=== PATIENT | male | born 1995 | race Caucasian/White ===

== ENCOUNTER 2017-06-03 08:48 | Observation (INO) | payer OTHER ==
[~2017-06-03] VITALS: Ht 175.3 cm; Wt 78.0 kg
[2017-06-03 09:09] VITALS: BP 121/68; PULSE 63; RESP 18; TEMP 98.2
[2017-06-03 09:17] VITALS: BP 121/68; PULSE 52; RESP 18; TEMP 98.2
[2017-06-03] MEDS ORDERED: SODIUM CHLOR 0.9% 1000 ML INJ 1,000 ML IV SCH (09:28)
[2017-06-03] MEDS ORDERED: SODIUM CHLORIDE 0.9% FLUSH 10 ML FLUSH IV FLUSH PRN ×2 (09:30→13:15)
--- NOTE | 2017-06-03 09:41 | PD ---
HPI Chief Complaint: GI Complaint Time Seen by Provider: 09:18 Travel History International Travel<30 days: No Contact w/Intl Traveler<30days: No Traveled to known affect area: No History of Present Illness HPI 21-year-old male complains of abdominal pain with nausea vomiting. Patient states that the symptoms started 11:00 last night. Patient states the pain in cramping pain diffuse over the abdomen. Patient denies any pain radiation. Patient states that he has intermittent nausea vomiting since then. Patient denies any fever chills. Patient complaint generalized malaise and weakness. Patient denies any headache. Patient denies any chest pain or shortness of breath. Patient denies any dysuria or frequency. Patient denies any medical history. Patient's not on any routine medication. Patient denies any alcohol or drug abuse. Patient was seen in [facility] emergency room last night. CT scan abdomen and pelvis shows acute appendicitis. Possible gallbladder disease. ED physician contacted Dr. Abdi, general surgery. Patient was advised to be transferred to [place] ED for evaluation and see general surgeon. Patient was given Toradol, Zosyn IV prior to arrival. [facility] Past Medical History Medical History: Denies Significant Hx Social History Alcohol Use: Yes Tobacco Use: Yes (/2 ppd) Substance Use: Yes Allergies-Medications (Allergen,Severity, Reaction): Coded Allergies: No Known Allergies (Unverified , 06/03/17) Reported Meds & Prescriptions Reported Meds & Active Scripts Active No Active Prescriptions or Reported Medications Review of Systems General / Constitutional: No: Fever Eyes: No: Visual changes HENT: No: Headaches Cardiovascular: No: Chest Pain or Discomfort Respiratory: No: Shortness of Breath Gastrointestinal: Positive: Nausea, Vomiting, Abdominal Pain Genitourinary: No: Dysuria Musculoskeletal: No: Pain Skin: No Rash Neurologic: No: Weakness Psychiatric: No: Depression Endocrine: No: Polydipsia Hematologic/Lymphatic: No: Easy Bruising Physical Exam Narrative GENERAL: Well-nourished, well-developed patient. SKIN: Focused skin assessment warm/dry. HEAD: Normocephalic. EYES: No scleral icterus. No injection or drainage. NECK: Supple, trachea midline. No JVD or lymphadenopathy. CARDIOVASCULAR: Regular rate and rhythm without murmurs, gallops, or rubs. RESPIRATORY: Breath sounds equal bilaterally. No accessory muscle use. GASTROINTESTINAL: Abdomen soft, nondistended. Patient has mild diffuse tenderness over the abdomen with moderate tenderness on palpation right low quadrant of the abdomen. No rebound tenderness. No mass. MUSCULOSKELETAL: No cyanosis, or edema. BACK: Nontender without obvious deformity. No CVA tenderness. Neurologic exam normal. Data Data Last Documented VS Vital Signs Date Time Temp Pulse Resp B/P (MAP) Pulse Ox O2 Delivery O2 Flow Rate FiO2 06/03/17: 98.2 52 18 121/68 (85) Orders Orders Complete Blood Count With Diff (06/03/17:28) Comprehensive Metabolic Panel (06/03/17:) Prothrombin Time / Inr (Pt) (06/03/17:) Act Partial Throm Time (Ptt) (06/03/17:) Urinalysis - C+S If Indicated (06/03/17:) Iv Access Insert/Monitor (06/03/17:28) Ecg Monitoring (06/03/17:) Oximetry (06/03/17:) Sodium Chlor 0.9% 1000 Ml Inj (Ns 1000 M (06/03/17:28) Sodium Chloride 0.9% Flush (Ns Flush) (06/03/17 09:30) MDM Medical Decision Making Medical Screen Exam Complete: Yes Emergency Medical Condition: Yes Differential Diagnosis Differential diagnosis including acute appendicitis, acute cholecystitis, enteritis, colitis. Narrative Course 21-year-old male with abdominal pain especially right low quadrant abdominal pain since last night. Patient was seen in [place] ED and transferred to [place] ED. Patient was given Toradol and Zosyn last night. Normal saline solution 1 25 cc an hour. Scripts No Active Prescriptions or Reported Meds Timmy Bocanegra MD Jun 03, 2017 09:41
[2017-06-03 10:05] LABS: AUTOMATED NEUTROPHIL # 12.5 TH/MM3 (1.8-7.7); BASOPHIL % 0.1 % (0.0-2.0); HEMATOCRIT 39.9 % (39.0-51.0); HEMO FLAGS DIFF FINAL; LYMPH % 4.4 % (9.0-44.0); LYMPHOCYTE # 0.6 TH/MM3 (1.0-4.8); MEAN CELL VOLUME 87.7 FL (80.0-100.0); MEAN CORPUSCULAR HEMOGLOBIN 29.8 PG (27.0-34.0); NEUT % 91.5 % (16.0-70.0); PLATELET COUNT 225 TH/MM3 (150-450); RED BLOOD COUNT 4.55 MIL/MM3 (4.50-5.90); RED CELL DISTRIBUTION WIDTH 14.1 % (11.6-17.2); WHITE BLOOD COUNT 13.7 TH/MM3 (4.0-11.0)
[2017-06-03 10:13] LABS: PROTHROMBIN TIME - PATIENT 11.3 SEC (9.8-11.6)
[2017-06-03 10:25] LABS: ANION GAP 7 MEQ/L (5-15); AST (GOT) 12 U/L (15-37); BICARBONATE 23.4 MEQ/L (21.0-32.0); BLOOD UREA NITROGEN 8 MG/DL (7-18); CHLORIDE 106 MEQ/L (98-107); GLOMERULAR FILTRATION RATE 147 ML/MIN (>89); POTASSIUM 4.1 MEQ/L (3.5-5.1); SODIUM (NA) 136 MEQ/L (136-145)
[2017-06-03 10:26] LABS: ALT (GPT) 24 U/L (12-78)
[2017-06-03 10:29] LABS: ALKALINE PHOSPHATASE 106 U/L (45-117); TOTAL BILIRUBIN ADULT 1.8 MG/DL (0.2-1.0)
[2017-06-03 11:04] VITALS: BP 132/66; PULSE 64; RESP 16; O2SAT 98
[2017-06-03] MEDS ORDERED: BUPIVACAINE/EPINEPHRINE 0.25% 50 ML VIAL ONE (11:56)
[2017-06-03] MEDS ORDERED: HYDROmorphone HCL PF 2 MG/ML VIAL ONE (11:59)
[2017-06-03] MEDS ORDERED: ACETAMINOPHEN 1000 MG/100 ML 100 ML IV ONE (11:59)
[2017-06-03] MEDS ORDERED: MIDAZOLAM HCL 2 MG/2 ML VIAL ONE (11:59)
[2017-06-03] MEDS ORDERED: SUGAMMADEX SODIUM 200 MG/2 ML VIAL IV PUSH ONE ×2 (11:59)
[2017-06-03] MEDS ORDERED: ceFAZolin INJ 1,000 MG VIAL ONE ×2 (12:00→12:01)
[2017-06-03] MEDS ORDERED: ONDANSETRON HCL 4 MG/2 ML VIAL IV PUSH ONE (12:00)
[2017-06-03] MEDS ORDERED: PROPOFOL 200 MG/20 ML AMP IV ONE (12:00)
--- NOTE | 2017-06-03 13:02 | MH ---
cc: GERRY ANDRADE M.D. DATE OF ADMISSION 06/03/2017 REASON FOR ADMISSION Acute appendicitis BRIEF HISTORY This is an otherwise healthy 21-year-old male who presented to the [place] ER with complaints of abdominal pain for several hours. He had some associated nausea and was evaluated and found to have an elevated white count with a left shift. A CT scan showed some distension of the gallbladder with some pericholecystic fluid, but additionally an enlarged appendix with periappendiceal inflammatory changes and a probable fecalith. He had an elevated total bilirubin, but normal liver function tests otherwise. His history and exam were consistent with acute appendicitis. ALLERGIES He has no known drug allergies. PAST MEDICAL HISTORY Noncontributory PAST SURGERIES None SOCIAL HISTORY He is a smoker, smokes a pack a day and has occasional alcohol use. His parents denied he has any HIV or hepatitis risk factors other than multiple tattoos. FAMILY HISTORY His family history is noncontributory. REVIEW OF SYSTEMS No heart, lung, liver, kidney disorders. No history of seizures. No history of being on blood thinning medications. PHYSICAL EXAM Physical exam shows a young male who is fairly sleepy. He wakes up. He is cooperative. He says his pain is improved since Toradol he received. His temperature is 98.2, pulse 52 rest rate 18, blood pressure 121/68. HEENT: Normocephalic, atraumatic. His pupils are 4 round and sluggishly reactive to light. His sclerae are anicteric. His oropharynx is clear. He has intact dentition. NECK: His neck is supple without neuropathy. He has a midline trachea. No jugular venous distension. LUNGS: His lungs are clear and equal anteriorly bilaterally. HEART: His heart sounds are regular without obvious murmur, rub or gallop. ABDOMEN: His abdomen is thin, soft, nondistended. He has normal bowel sounds. No obvious hernias or scars. He is tender to deep palpation in the right lower quadrant without rebound or guarding. GENITAL AND RECTAL: Exams are not repeated. EXTREMITIES: His extremities show no cyanosis, clubbing or edema. He has multiple tattoos on the torso and extremities. He has got equal radial pulses. NEUROLOGIC: He is somnolent, but wakes and is appropriate. He has no obvious motor or sensory deficits. LABORATORY VALUES Showed a white count that went from 20,000-13,000. He still as 91.5% neutrophils. Hemoglobin is 13.6, platelet count is 225. Coagulation studies are normal. Potassium is 41, creatinine 0.68. He has a total bilirubin of 1.8, but AST is 12, ALT is 24, alkaline phosphatase 106. IMAGING STUDIES Shows a CT scan which shows a small amount of fluid around the gallbladder in the pericolic area on down into the pelvis. He has a distended inflamed appendix with a fecalith. His gallbladder is mildly distended consistent with a BNNPO. ASSESSMENT This is a 21-year-old with likely acute appendicitis. RECOMMENDATIONS Recommendations are made for laparoscopic appendectomy. The time the gallbladder can be evaluated. The procedure in detail plus risks of bleeding, infection, injury to intra-abdominal contents including bowel, ureter bladder possible open surgery, DVT, pulmonary embolus and expectations for recovery were reviewed in detail. The patient understands and wished to proceed. I talked to the operating room and they are intending to bring the patient up to surgery in the very near future. MD DAPHNE Montejo/LETTY /10:51 AM /12:51 PM
[2017-06-03 13:05] VITALS: PULSE 80
[2017-06-03] MEDS ORDERED: DO NOT ADM ANY ANTICOAGULANT DRUGS PRN (13:05)
--- NOTE | 2017-06-03 13:08 | PD.OP ---
Operative Report Date of Surgery: Jun 03, 2017 Preoperative Diagnosis: acute appendicitis Postoperative Diagnosis: same Procedure: lap appie Anesthesia: general Surgeon: Nito Abdi Fire Assistant(s): Rolf Operation and Findings: appendix to path, non perforated appendicitis. Free clear fluid. GB greenish in color, no inflammatory changes. EBL less than 5 ml. Nito Abdi MD Jun 03, 2017 13:08
[2017-06-03] MEDS ORDERED: HYDR-3533 PO (13:12)
[2017-06-03] MEDS ORDERED: Post-op Orders (for Pharmacy) MISC XX ONE (13:15)
[2017-06-03] MEDS ORDERED: MAGNESIUM HYDROXIDE SUSP 30 ML CUP PO PRN (13:15)
[2017-06-03] MEDS ORDERED: MORPHINE SULFATE 8 MG/ML INJ IV PUSH PRN (13:15)
[2017-06-03] MEDS ORDERED: ACETAMINOPHEN/HYDROcodone 325 MG/5 MG TAB PO PRN ×2 (13:15)
[2017-06-03] MEDS ORDERED: ONDANSETRON HCL 4 MG/2 ML VIAL IV PRN (13:15)
--- NOTE | 2017-06-03 13:16 | HHI.DS ---
Discharge Summary Admission Date Jun 03, 2017 at 11:18 Discharge Date: Jun 03, 2017 Admitting Diagnosis acute appendicitis Procedures lap appie Brief History 21 year old with abdominal pain nausea vomiting, workup c/w appendicitis CBC/BMP: 06/03/17 0910 06/03/17 0910 Significant Findings Laboratory Tests Test 06/03/17 09:10 White Blood Count 13.7 TH/MM3 (4.0-11.0) Neutrophils (%) (Auto) 91.5 % (16.0-70.0) Lymphocytes (%) (Auto) 4.4 % (9.0-44.0) Neutrophils # (Auto) 12.5 TH/MM3 (1.8-7.7) Lymphocytes # (Auto) 0.6 TH/MM3 (1.0-4.8) Random Glucose 123 MG/DL (74-106) Aspartate Amino Transf (AST/SGOT) 12 U/L (15-37) Total Bilirubin 1.8 MG/DL (0.2-1.0) PE at Discharge steri strips intact Hospital Course transfer from [place] to ED, then to OR, then PACU and recovered. OK for DC when tolerating po/ po pain meds well. Pt Condition on Discharge: Good Discharge Disposition: Discharge Home Discharge Instructions DIET: Follow Instructions for: As Tolerated, No Restrictions Activities you can perform: Shower Only-No Bath Activities to Avoid: Driving for 24 hrs, Strenuous Activity Nito Abdi MD Jun 03, 2017 13:16
[2017-06-03] MEDS ORDERED: LACTATED RINGER'S 1000 ML INJ 1,000 ML IV SCH (14:00)
[2017-06-03 14:43] VITALS: BP 135/86; PULSE 60; RESP 20; TEMP 97.9; O2SAT 100
[2017-06-03] MEDS ORDERED: KETOROLAC TROMETHAMINE 30 MG/ML (IVP) VIAL IV PUSH SCH (15:00)
[2017-06-03] MEDS ORDERED: SODIUM CHLORIDE 0.9% FLUSH 10 ML FLUSH IV FLUSH SCH (21:00)
[2017-06-04] MEDS ORDERED: ENOXAPARIN SODIUM 40 MG/0.4 ML SYRINGE SQ SCH (12:00)
--- NOTE | 2017-06-06 08:46 | MP ---
cc: GERRY ANDRADE M.D. DATE OF SURGERY: 06/03/2017 PREOPERATIVE DIAGNOSIS Acute appendicitis. POSTOPERATIVE DIAGNOSIS Acute appendicitis. PROCEDURE Laparoscopic appendectomy. SURGEON Dr. Gerry Andrade. ANESTHESIA General. INDICATIONS This is a 21-year-old transferred from [place] with the diagnosis of acute appendicitis. There is some question of a distended gallbladder and free fluid. INTRAOPERATIVE FINDINGS Consistent with acute appendicitis. Appendix removed and sent to pathology. Free fluid clear. No evidence of inflammatory change of the gallbladder which was slightly greenish in color. Appendix removed and sent to pathology. ESTIMATED BLOOD LOSS Less than 5 mL. DESCRIPTION OF PROCEDURE IN DETAIL The patient was identified as Franck Eli, taken to the operating room and placed in supine position. Sequential compression devices were placed on bilateral lower extremities. Following induction of adequate general endotracheal anesthesia the patient's abdomen was prepped and draped in the usual sterile fashion with Betadine. A timeout procedure was performed. Following completion of the timeout procedure to everyone's satisfaction within the room, local anesthetic was placed at each trocar site. A small supraumbilical transverse incision was carried out with a scalpel and dissection continued posteriorly to the level of the midline fascia. The base of the umbilicus was retracted anteriorly and the supraumbilical fascia was incised in a vertical fashion allowing for entry into the peritoneal cavity with the surgeon's finger. The [employer] balloon Mica trocar was placed in the peritoneal cavity and its balloon inflated with CO2 insufflation until a level of 15 mmHg ensued. Two infraumbilical 5 mm trocars were placed in the peritoneal cavity under direct laparoscopic view after incision of the skin with a scalpel. Care was taken to avoid the urinary bladder. The appendix was immediately identified in the right lower quadrant, was distended and inflamed. There was some free fluid which was clear with a slight greenish hint. The appendiceal mesentery was taken down with a Harmonic scalpel down to the base of the appendix to the level of the cecum. A 0 PDS Endoloop was placed across the base of the appendix at the level of the cecum and the appendix amputated distal to this. The appendix was then placed into an Endo retriever bag and removed through the supraumbilical fascial port incision site and passed off the field for pathologic evaluation. Irrigation of the right lower quadrant and pelvis was performed. Fluid in the right paracolic gutter in the pelvis and adjacent to the liver was suctioned out. The sigmoid colon had adherence to the lateral pelvic sidewall in the left lower quadrant. There were no acute inflammatory changes. The gallbladder was slightly greenish in color, mildly distended, but had no inflammatory changes. The remaining local anesthetic was placed in the right lower quadrant. The trocars were removed under direct visualization. There was no evidence of bleeding from the trocar sites. The abdomen was desufflated through the supraumbilical port which was then removed. The supraumbilical fascial incision was closed with interrupted 0 Vicryl sutures. The port sites were irrigated copiously with saline. The skin incisions were approximated with 4-0 Monocryl subcuticular sutures. Dressings were applied with Mastisol and half-inch brown Steri-Strips. The patient tolerated the procedure without apparent complication. Sponge, needle and instrument counts were correct at the end of the case. MD DAPHNE Montejo/JEANNIE /1:04 PM /8:29 AM
== END 2017-06-03 18:19 | disposition home or self-care (01) ==
LOC: NEPD 08:48 → INTOOBSV 11:18 → NEDA 11:18 → H6YA 14:36
PROVIDERS: ADMIT Surgery Trauma Surgery; ATTEND Surgery Trauma Surgery
DX: K35.80 Unspecified acute appendicitis (principal); R53.1 Weakness; R11.2 Nausea with vomiting, unspecified; F17.210 Nicotine dependence, cigarettes, uncomplicated
CPT/HCPCS: 00840; 44970; 70450; 74177; 80053; 81001; 83690; 85025; 85610; 85730; 88304; 93005; 99285; G0378; J0131; J1170; J1885; J2250; J2405; J2543; J3010; J7030; Q9967; 96365; 96375; J0690

== ENCOUNTER 2017-08-27 12:13 | Observation (INO) | payer OTHER ==
[~2017-08-27] VITALS: Ht 175.3 cm; Wt 69.0 kg
[~2017-08-27 12:13] MED LIST: HYDR-3533 PO
[2017-08-27 12:15] VITALS: BP 155/89; PULSE 78; RESP 18; TEMP 97.8; O2SAT 99
[2017-08-27] MEDS ORDERED: SODIUM CHLOR 0.9% 1000 ML INJ 1,000 ML IV SCH (12:40)
[2017-08-27] MEDS ORDERED: ONDANSETRON HCL 4 MG/2 ML VIAL IVP ONE (12:45)
[2017-08-27] MEDS ORDERED: SODIUM CHLORIDE 0.9% FLUSH 10 ML FLUSH IV FLUSH PRN ×2 (12:45→19:00)
[2017-08-27] MEDS ORDERED: MORPHINE SULFATE 4 MG/ML INJ IV PUSH ONE (12:45)
--- NOTE | 2017-08-27 12:54 | PD ---
HPI Chief Complaint: Abdominal Pain Time Seen by Provider: 12:36 Travel History International Travel<30 days: No Contact w/Intl Traveler<30days: No Traveled to known affect area: No History of Present Illness HPI 21-year-old occasional male with history of daily appendicitis with laparoscopic removal on June 03, by Dr. Abdi. He presents with recurrent abdominal pain, which seems to be localizing into the right abdomen again. He denies fever, chills, nausea, vomiting, or urinary symptoms. No Penile discharge. Patient has history of one week ago, falling off a skateboard , and helping someone move. Patient states the pain has gotten progressively worse over the past week. At Rest the pain is currently 4 out of 10. He has no known drug allergies. PFSH Past Medical History Cancer: No Cardiovascular Problems: No Endocrine: No Genitourinary: No Immune Disorder: No Musculoskeletal: No Neurologic: No Psychiatric: No Reproductive: No Respiratory: No Social History Alcohol Use: Yes Tobacco Use: Yes (/2 ppd) Substance Use: No Allergies-Medications (Allergen,Severity, Reaction): Coded Allergies: No Known Allergies (Unverified , 06/03/17) Reported Meds & Prescriptions Reported Meds & Active Scripts Active Lortab (Hydrocodone-Acetaminophen) 5-325 Mg Tab 1 Tab PO Q4H PRN Review of Systems Except as stated in HPI: all other systems reviewed are Neg General / Constitutional: No: Fever Eyes: No: Visual changes HENT: No: Headaches Cardiovascular: No: Chest Pain or Discomfort Respiratory: No: Shortness of Breath Gastrointestinal: Positive: Abdominal Pain, No: Nausea, Vomiting, Diarrhea, Dysphagia, Loss of Appetite Genitourinary: No: Dysuria Musculoskeletal: No: Pain Skin: No Rash Neurologic: No: Weakness Psychiatric: No: Depression Endocrine: No: Polydipsia Hematologic/Lymphatic: No: Easy Bruising Physical Exam Narrative GENERAL: Patient appears in no acute distress. SKIN: Warm and dry. Normal color. Normal turgor. HEAD: Atraumatic. Normocephalic. EYES: Pupils equal and round. No scleral icterus. No injection or drainage. ENT: No nasal bleeding or discharge. Mucous membranes pink and moist. NECK: Trachea midline. Supple. CARDIOVASCULAR: Regular rate and rhythm. RESPIRATORY: No accessory muscle use. Clear to auscultation. Breath sounds equal bilaterally. GASTROINTESTINAL: Abdomen soft, patient has fairly significant point tenderness with out in the right lower quadrant, nondistended. Bowel sounds are present in all quadrants. Hepatic and splenic margins not palpable. MUSCULOSKELETAL: Extremities without clubbing, cyanosis, or edema. No obvious deformities. NEUROLOGICAL: Awake and alert. No obvious cranial nerve deficits. Motor grossly within normal limits. Five out of 5 muscle strength in the arms and legs. Normal speech. PSYCHIATRIC: Appropriate mood and affect; insight and judgment normal. Data Data Last Documented VS Vital Signs Date Time Temp Pulse Resp B/P (MAP) Pulse Ox O2 Delivery O2 Flow Rate FiO2 08/27/17 12:15 97.8 78 18 155/89 (111) 99 Orders Orders Complete Blood Count With Diff (08/27/17 12:40) Comprehensive Metabolic Panel (08/27/17 12:40) Lipase (08/27/17 12:40) Prothrombin Time / Inr (Pt) (08/27/17 12:40) Act Partial Throm Time (Ptt) (08/27/17 12:40) Urinalysis - C+S If Indicated (08/27/17 12:40) Ct Abd/Pel W Iv Contrast(Rout) (08/27/17 12:40) Iv Access Insert/Monitor (08/27/17 12:40) Ecg Monitoring (08/27/17 12:40) Oximetry (08/27/17 12:40) NPO (08/27/17 12:40) Morphine Inj (Morphine Inj) (08/27/17 12:45) Ondansetron Inj (Zofran Inj) (08/27/17 12:45) Sodium Chlor 0.9% 1000 Ml Inj (Ns 1000 M (08/27/17 12:40) Sodium Chloride 0.9% Flush (Ns Flush) (08/27/17 12:45) Oral Contrast - Adult (08/27/17 14:22) Diatrizoate Liq ( Gastrocirilo Liq) (08/27/17 15:30) Iohexol 350 Inj (Omnipaque 350 Inj) (08/27/17 16:52) Piperacil-Tazo 4.5 Gm Premix (Zosyn 4.5 (08/27/17 17:45) Consult General Surgery (08/27/17 ) Labs Laboratory Tests Test 08/27/17 13:00 08/27/17 15:05 White Blood Count 11.2 TH/MM3 Red Blood Count 4.83 MIL/MM3 Hemoglobin 15.5 GM/DL Hematocrit 43.3 % Mean Corpuscular Volume 89.6 FL Mean Corpuscular Hemoglobin 32.0 PG Mean Corpuscular Hemoglobin Concent 35.7 % Red Cell Distribution Width 14.3 % Platelet Count 249 TH/MM3 Mean Platelet Volume 8.1 FL Neutrophils (%) (Auto) 80.2 % Lymphocytes (%) (Auto) 8.8 % Monocytes (%) (Auto) 10.3 % Eosinophils (%) (Auto) 0.6 % Basophils (%) (Auto) 0.1 % Neutrophils # (Auto) 9.0 TH/MM3 Lymphocytes # (Auto) 1.0 TH/MM3 Monocytes # (Auto) 1.2 TH/MM3 Eosinophils # (Auto) 0.1 TH/MM3 Basophils # (Auto) 0.0 TH/MM3 CBC Comment DIFF FINAL Differential Comment Prothrombin Time 11.2 SEC Prothromb Time International Ratio 1.1 RATIO Activated Partial Thromboplast Time 26.1 SEC Blood Urea Nitrogen 9 MG/DL Creatinine 0.70 MG/DL Random Glucose 94 MG/DL Total Protein 7.8 GM/DL Albumin 4.0 GM/DL Calcium Level 9.1 MG/DL Alkaline Phosphatase 91 U/L Aspartate Amino Transf (AST/SGOT) 12 U/L Alanine Aminotransferase (ALT/SGPT) 22 U/L Total Bilirubin 1.6 MG/DL Sodium Level 140 MEQ/L Potassium Level 4.2 MEQ/L Chloride Level 106 MEQ/L Carbon Dioxide Level 26.2 MEQ/L Anion Gap 8 MEQ/L Estimat Glomerular Filtration Rate 142 ML/MIN Lipase 65 U/L Urine Color YELLOW Urine Turbidity CLEAR Urine pH 7.0 Urine Specific [place] 1.009 Urine Protein NEG mg/dL Urine Glucose (UA) NEG mg/dL Urine Ketones 10 mg/dL Urine Occult Blood NEG Urine Nitrite NEG Urine Bilirubin NEG Urine Urobilinogen 2.0 MG/DL Urine Leukocyte Esterase NEG Urine WBC 1 /hpf Urine Mucus FEW /lpf Microscopic Urinalysis Comment CULT NOT INDICATED MDM Medical Decision Making Medical Screen Exam Complete: Yes Emergency Medical Condition: Yes Medical Record Reviewed: Yes Differential Diagnosis Abdominal pain. Adhesions. Abscess. Diverticulitis. Urinary tract infection. Narrative Course Patient is medically stable at time of exam. Labs ordered including CBC, CMP, lipase, urinalysis. IV access is obtained and he is given 4 mg morphine IV as well as 4 mg Zofran IV. Patient is given 1000 mls normal saline bolus. CT of the abdomen/pelvis with IV and oral contrast is ordered. CBC is remarkable for leukocytosis of 11.2 with 80.2% neutrophils. Coagulation studies are normal. Chemistries unremarkable except for slightly elevated bilirubin of 1.6. Urinalysis shows no significant findings. CT of the abdomen and pelvis shows: 1. Tiny area of loculated fluid in the right lower quadrant at the appendectomy site, possibly small seroma or small abscess. Also seen nonloculated fluid and free fluid in the right lower quadrant. No free air or bowel obstruction. Patient is discussed and examined with Dr. Stack. Call was placed to general surgeon by Dr. Stack. Patient was discussed with Dr. Mai, who is covering for Dr. Abdi. He recommended IV antibiotics, admission, and surgical consult. Call was placed to the hospitalist for admission. Diagnosis Primary Impression: Seroma of digestive system after digestive system procedure Additional Impression: Intra-abdominal abscess post-procedure Qualified Codes: T81.4XXA - Infection following a procedure, initial encounter ; K65.1 - Peritoneal abscess Admitting Information Admitting Physician Requests: Observation Condition: Stable Juan Loco Aug 27, 2017 12:54
[2017-08-27 13:14] LABS: BASOPHIL % 0.1 % (0.0-2.0); EOSINOPHIL # 0.1 TH/MM3 (0-0.4); EOSINOPHIL % 0.6 % (0.0-4.0); HEMATOCRIT 43.3 % (39.0-51.0); HEMO FLAGS DIFF FINAL; LYMPH % 8.8 % (9.0-44.0); MEAN CELL VOLUME 89.6 FL (80.0-100.0); MEAN CORPUSCULAR HGB CONC 35.7 % (32.0-36.0); MONO % 10.3 % (0.0-8.0); NEUT % 80.2 % (16.0-70.0); PLATELET COUNT 249 TH/MM3 (150-450); RED BLOOD COUNT 4.83 MIL/MM3 (4.50-5.90); RED CELL DISTRIBUTION WIDTH 14.3 % (11.6-17.2); WHITE BLOOD COUNT 11.2 TH/MM3 (4.0-11.0)
[2017-08-27 13:24] LABS: APTT (PATIENT) 26.1 SEC (24.3-30.1); INTERNATIONAL NORMALIZED RATIO 1.1 RATIO; PROTHROMBIN TIME - PATIENT 11.2 SEC (9.8-11.6)
[2017-08-27 13:41] LABS: ALT (GPT) 22 U/L (12-78); ANION GAP 8 MEQ/L (5-15); AST (GOT) 12 U/L (15-37); BICARBONATE 26.2 MEQ/L (21.0-32.0); BLOOD UREA NITROGEN 9 MG/DL (7-18); CHLORIDE 106 MEQ/L (98-107); GLOMERULAR FILTRATION RATE 142 ML/MIN (>89); POTASSIUM 4.2 MEQ/L (3.5-5.1); SODIUM (NA) 140 MEQ/L (136-145)
[2017-08-27 13:44] LABS: ALKALINE PHOSPHATASE 91 U/L (45-117); TOTAL BILIRUBIN ADULT 1.6 MG/DL (0.2-1.0)
[2017-08-27 15:24] LABS: BLOOD, URINE NEG (NEG); COMMENT (UR) CULT NOT INDICATED; CULTURE IF INDICATED CULT NOT INDICATED; GLUCOSE,URINE NEG (NEG); KETONE, URINE 10 mg/dL (NEG); MUCUS URINE FEW /lpf (OCC); NITRITE,URINE NEG (NEG); URINE COLOR YELLOW (YELLW/STRAW)
[2017-08-27] MEDS ORDERED: DIATRIZOATE MEGLUM/DIATRIZOATE SOD 9 ML CUP PO ONE (15:30)
[2017-08-27] MEDS ORDERED: IOHEXOL 350 MG/ML 10 ML VIAL (for RAD DIAG) IVCONTRAST ONE (16:52)
--- NOTE | 2017-08-27 17:13 | RADRPT ---
EXAM DATE/TIME: 08/27/2017 16:38 [place] COMPARISON: No previous studies available for comparison. INDICATIONS : Right lower abdomen pain for three days. IV CONTRAST: 81 cc Omnipaque 350 (iohexol) IV ORAL CONTRAST: Prescribed oral contrast ingested. RADIATION DOSE: 6.64 CTDIvol (mGy) MEDICAL HISTORY : None SURGICAL HISTORY : Appendectomy. ENCOUNTER: Initial ACUITY: 3 days PAIN SCALE: 7/10 LOCATION: Right lower quadrant TECHNIQUE: Volumetric scanning of the abdomen and pelvis was performed. Using automated exposure control and ad justment of the mA and/or kV according to patient size, radiation dose was kept as low as reasonably achievable to obtain optimal diagnostic quality images. DICOM format image data is available electro nically for review and comparison. FINDINGS: Patient is status post appendectomy. There is a small loculated area of fluid in the surgical bed jose suring about a centimeter in diameter. There is some nonloculated fluid and trace free fluid also pre sent predominantly right lower quadrant. No free air. No bowel obstruction. No adenopathy. Small hiatal hernia. Lung bases clear except for minimal atelectasis. No acute bony abnormalities. CONCLUSION: 1. Tiny area of loculated fluid in the right lower quadrant at the appendectomy site, possibly small seroma or small abscess. Also seen nonloculated fluid and free fluid in the right lower quadrant. No free air or bowel obstruction. Best Galvan MD on August 27, 2017 at 17:04 Board Certified Radiologist. This report was verified electronically.
[2017-08-27 17:45] VITALS: BP 138/67; PULSE 52; RESP 18; O2SAT 97
[2017-08-27] MEDS ORDERED: PIPERACIL-TAZO 4.5 GM PREMIX 100 ML IV ONE (17:45)
[2017-08-27] MEDS ORDERED: oxyCODONE/ACETAMINOPHEN 5 MG/325 MG TAB PO PRN (19:00)
[2017-08-27] MEDS ORDERED: BISACODYL 10 MG SUPP RECTAL PRN (19:00)
[2017-08-27] MEDS ORDERED: MORPHINE SULFATE 4 MG/ML INJ IV PUSH PRN ×2 (19:00)
[2017-08-27] MEDS ORDERED: NALOXONE HCL 0.4 MG/ML AMP IV PUSH PRN (19:00)
[2017-08-27] MEDS ORDERED: MAGNESIUM HYDROXIDE SUSP 30 ML CUP PO PRN (19:00)
[2017-08-27] MEDS ORDERED: SENNOSIDES 8.6 MG TAB PO PRN (19:00)
[2017-08-27] MEDS ORDERED: PROCHLORPERAZINE 25 MG SUPP RECTAL PRN (19:00)
[2017-08-27] MEDS ORDERED: ACETAMINOPHEN 325 MG TAB PO PRN ×2 (19:00)
[2017-08-27] MEDS ORDERED: TEMAZEPAM 15 MG CAP PO PRN (19:00)
[2017-08-27] MEDS ORDERED: LACTULOSE SYRUP 20 GM/30 ML CUP PO PRN (19:00)
[2017-08-27] MEDS ORDERED: oxyCODONE/ACETAMINOPHEN 10 MG/325 MG TAB PO PRN (19:00)
[2017-08-27] MEDS ORDERED: ONDANSETRON HCL 4 MG/2 ML VIAL IVP PRN (19:00)
[2017-08-27] MEDS: SODIUM CHLOR 0.9% 1000 ML INJ 1,000 ML IV SCH (20:05)
[2017-08-27 20:13] VITALS: BP 139/80; PULSE 56; RESP 16; TEMP 99.7; O2SAT 97
--- NOTE | 2017-08-27 20:52 | HHI.HP ---
[facility] No Primary Care Physician Admission Diagnosis Abdominal Seroma S/P abdominal surgery Diagnoses: Travel History International Travel<30 Days: No Contact w/Intl Traveler <30 Da: No Traveled to Known Affected Are: No History of Present Illness 21-year-old male with a past medical history significant for laparoscopic appendectomy for acute appendicitis on 06/06/17 presents to the emergency department with a 3 day history of generalized abdominal pain. The patient endorses intermittent accompanying nausea. Denies emesis. Subjective fever/ chills. The patient reports his abdominal pain has progressed over the past 3 days to the point where he felt he needed to come to the emergency department for further evaluation. He is most tender in the right lower quadrant. CT of the abdomen/pelvis shows a tiny area of loculated fluid in the right lower quadrant at the appendectomy site with loculated fluid in the right lower quadrant. Afebrile with stable vital signs. Mild leukocytosis of 11.2. Review of Systems Subjective fever/chills Denies blurry vision, otorrhea, rhinorrhea Denies sore throat and cough No chest pain, palpitations, shortness of breath Positive abdominal pain Positive nausea, no emesis/constipation/diarrhea Denies muscle pain/weakness No rashes Past Family Social History Past Medical History None Past Surgical History Laparoscopic appendectomy on 06/06/17 Reported Medications None Allergies: Coded Allergies: No Known Allergies (Unverified , 06/03/17) Family History Mom with CAD, DM Social History Smokes a half a pack per day 5 years. Occasional alcohol. Positive marijuana. Denies other illicit drugs. Physical Exam Vital Signs Vital Signs Date Time Temp Pulse Resp B/P (MAP) Pulse Ox O2 Delivery O2 Flow Rate FiO2 08/27/17 20:13 99.7 56 16 139/80 (99) 97 08/27/17 19:33 21 08/27/17 17:45 52 18 138/67 (90) 97 08/27/17 12:15 97.8 78 18 155/89 (111) 99 Physical Exam GENERAL: male standing up in his room. SKIN: No rashes, ecchymoses or lesions. Cool and dry. HEAD: Atraumatic. Normocephalic. No temporal or scalp tenderness. EYES: Pupils equal round and reactive. Extraocular motions intact. No scleral icterus. No injection or drainage. ENT: Nose without bleeding, purulent drainage or septal hematoma. Throat without erythema, tonsillar hypertrophy or exudate. Uvula midline. Airway patent. NECK: Trachea midline. No JVD or lymphadenopathy. Supple, nontender, no meningeal signs. CARDIOVASCULAR: Regular rate and rhythm without murmurs, gallops, or rubs. RESPIRATORY: Clear to auscultation. Breath sounds equal bilaterally. No wheezes , rales, or rhonchi. GASTROINTESTINAL: Abdomen soft, nondistended. Exquisitely tender to palpation worse in the right lower quadrant. No hepato-splenomegaly, or palpable masses. No guarding. MUSCULOSKELETAL: Extremities without clubbing, cyanosis, or edema. No joint tenderness, effusion, or edema noted. No calf tenderness. NEUROLOGICAL: Awake and alert. Cranial nerves II through XII intact. Motor and sensory grossly within normal limits. Normal speech. Laboratory Laboratory Tests Test 08/27/17 13:00 08/27/17 15:05 White Blood Count 11.2 Red Blood Count 4.83 Hemoglobin 15.5 Hematocrit 43.3 Mean Corpuscular Volume 89.6 Mean Corpuscular Hemoglobin 32.0 Mean Corpuscular Hemoglobin Concent 35.7 Red Cell Distribution Width 14.3 Platelet Count 249 Mean Platelet Volume 8.1 Neutrophils (%) (Auto) 80.2 Lymphocytes (%) (Auto) 8.8 Monocytes (%) (Auto) 10.3 Eosinophils (%) (Auto) 0.6 Basophils (%) (Auto) 0.1 Neutrophils # (Auto) 9.0 Lymphocytes # (Auto) 1.0 Monocytes # (Auto) 1.2 Eosinophils # (Auto) 0.1 Basophils # (Auto) 0.0 CBC Comment DIFF FINAL Differential Comment Prothrombin Time 11.2 Prothromb Time International Ratio 1.1 Activated Partial Thromboplast Time 26.1 Blood Urea Nitrogen 9 Creatinine 0.70 Random Glucose 94 Total Protein 7.8 Albumin 4.0 Calcium Level 9.1 Alkaline Phosphatase 91 Aspartate Amino Transf (AST/SGOT) 12 Alanine Aminotransferase (ALT/SGPT) 22 Total Bilirubin 1.6 Sodium Level 140 Potassium Level 4.2 Chloride Level 106 Carbon Dioxide Level 26.2 Anion Gap 8 Estimat Glomerular Filtration Rate 142 Lipase 65 Urine Color YELLOW Urine Turbidity CLEAR Urine pH 7.0 Urine Specific [place] 1.009 Urine Protein NEG Urine Glucose (UA) NEG Urine Ketones 10 Urine Occult Blood NEG Urine Nitrite NEG Urine Bilirubin NEG Urine Urobilinogen 2.0 Urine Leukocyte Esterase NEG Urine WBC 1 Urine Mucus FEW Microscopic Urinalysis Comment CULT NOT INDICATED Result Diagram: 08/27/17 1300 08/27/17 1300 Caprinjocelyne VTE Risk Assessment Caprini VTE Risk Assessment: No/Low Risk (score <= 1) Caprini Risk Assessment Model Point Value = 1 Point Value = 2 Point Value = 3 Point Value = 5 Age 41-60 Minor surgery BMI > 25 kg/m2 Swollen legs Varicose veins or History of unexplained or recurrent spontaneous Oral contraceptives or hormone replacement Sepsis (< 1 month) Serious lung disease, including pneumonia (< 1 month) Abnormal pulmonary function Acute myocardial infarction Congestive heart failure (< 1 month) History of inflammatory bowel disease Medical patient at bed rest Age 61-74 Arthroscopic surgery Major open surgery (> 45 min) Laparoscopic surgery (> 45 min) Malignancy Confined to bed (> 72 hours) Immobilizing plaster cast Central venous access Age >= 75 History of VTE Family history of VTE Factor V Leiden Prothrombin [id number] Lupus anticoagulant Anticardiolipin antibodies Elevated serum homocysteine Heparin-induced thrombocytopenia Other congenital or acquired thrombophilia Stroke (< 1 month) Elective arthroplasty Hip, pelvis, or leg fracture Acute spinal cord injury (< 1 month) Prophylaxis Regimen Total Risk Factor Score Risk Level Prophylaxis Regimen 0-1 Low Early ambulation 2 Moderate Order ONE of the following: *Sequential Compression Device (SCD) *Heparin 5000 units SQ BID 3-4 Higher Order ONE of the following medications: *Heparin 5000 units SQ TID *Enoxaparin/Lovenox 40 mg SQ daily (WT < 150 kg, CrCl > 30 mL/min) *Enoxaparin/Lovenox 30 mg SQ daily (WT < 150 kg, CrCl > 10-29 mL/min) *Enoxaparin/Lovenox 30 mg SQ BID (WT < 150 kg, CrCl > 30 mL/min) AND/OR *Sequential Compression Device (SCD) 5 or more Highest Order ONE of the following medications: *Heparin 5000 units SQ TID (Preferred with Epidurals) *Enoxaparin/Lovenox 40 mg SQ daily (WT < 150 kg, CrCl > 30 mL/min) *Enoxaparin/Lovenox 30 mg SQ daily (WT < 150 kg, CrCl > 10-29 mL/min) *Enoxaparin/Lovenox 30 mg SQ BID (WT < 150 kg, CrCl > 30 mL/min) AND *Sequential Compression Device (SCD) Assessment and Plan Assessment and Plan Assessment/plan: 1. Intra-abdominal fluid collection, abscess versus seroma Patient is status post laparoscopic cholecystectomy with Dr. Abdi on 06/06/17 CT abd/pelvis shows tiny area of loculated fluid in the right lower quadrant at the appendectomy site with free fluid in the right lower quadrant Zosyn NPO after MN IVFs Pain contorl General surgery consulted, appreciate recommendations Monitor for signs of sepsis FEN NPO NS at 100 cc/hr Electrolytes: replete prn SCDs Moni Carvajal MD Aug 27, 2017 20:52
[2017-08-27] MEDS: SODIUM CHLORIDE 0.9% FLUSH 10 ML FLUSH IV FLUSH SCH (21:00)
[2017-08-27] MEDS: DOCUSATE SODIUM 50 MG/SENNA 8.6 MG TAB PO SCH (21:00)
[2017-08-27 23:27] VITALS: BP 137/68; PULSE 58; RESP 17; TEMP 98.3; O2SAT 97
[2017-08-28 03:20] VITALS: BP 131/77; PULSE 66; RESP 17; TEMP 98; O2SAT 96
[2017-08-28 05:52] LABS: AUTOMATED NEUTROPHIL # 6.5 TH/MM3 (1.8-7.7); BASOPHIL % 0.4 % (0.0-2.0); EOSINOPHIL # 0.2 TH/MM3 (0-0.4); EOSINOPHIL % 1.7 % (0.0-4.0); HEMATOCRIT 40.7 % (39.0-51.0); HEMO FLAGS DIFF FINAL; LYMPH % 14.6 % (9.0-44.0); LYMPHOCYTE # 1.4 TH/MM3 (1.0-4.8); MEAN CELL VOLUME 90.3 FL (80.0-100.0); MEAN CORPUSCULAR HEMOGLOBIN 31.3 PG (27.0-34.0); MEAN CORPUSCULAR HGB CONC 34.7 % (32.0-36.0); MONO % 13.4 % (0.0-8.0); NEUT % 69.9 % (16.0-70.0); PLATELET COUNT 220 TH/MM3 (150-450); RED BLOOD COUNT 4.51 MIL/MM3 (4.50-5.90); RED CELL DISTRIBUTION WIDTH 14.4 % (11.6-17.2); WHITE BLOOD COUNT 9.3 TH/MM3 (4.0-11.0)
[2017-08-28 06:04] LABS: INTERNATIONAL NORMALIZED RATIO 1.1 RATIO; PROTHROMBIN TIME - PATIENT 11.1 SEC (9.8-11.6)
[2017-08-28 06:24] LABS: ALKALINE PHOSPHATASE 80 U/L (45-117); ALT (GPT) 18 U/L (12-78); ANION GAP 9 MEQ/L (5-15); AST (GOT) 13 U/L (15-37); BICARBONATE 26.2 MEQ/L (21.0-32.0); BLOOD UREA NITROGEN 12 MG/DL (7-18); CHLORIDE 105 MEQ/L (98-107); GLOMERULAR FILTRATION RATE 108 ML/MIN (>89); POTASSIUM 3.8 MEQ/L (3.5-5.1); SODIUM (NA) 140 MEQ/L (136-145); TOTAL BILIRUBIN ADULT 1.6 MG/DL (0.2-1.0)
[2017-08-28] MEDS: SODIUM CHLOR 0.9% 1000 ML INJ 1,000 ML IV SCH ×2 (06:30→14:50)
[2017-08-28] MEDS: PIPERACIL-TAZO 3.375 GM PREMIX 50 ML IV SCH ×3 (06:30→11:17)
[2017-08-28 07:38] VITALS: BP 126/66; PULSE 53; RESP 18; TEMP 97.5; O2SAT 98
[2017-08-28] MEDS: SODIUM CHLORIDE 0.9% FLUSH 10 ML FLUSH IV FLUSH SCH (09:00)
[2017-08-28] MEDS: DOCUSATE SODIUM 50 MG/SENNA 8.6 MG TAB PO SCH (09:00)
[2017-08-28 11:30] VITALS: BP 124/69; PULSE 46; RESP 18; TEMP 98.2; O2SAT 99
[2017-08-28] MEDS ORDERED: NICOTINE 14 MG/24 HR PATCH T-DERMAL ONE (11:30)
[2017-08-28] MEDS ORDERED: LEVO500T8 PO (13:12)
--- NOTE | 2017-08-28 14:16 | PD.CONS ---
cc: Ernestine Tidwell MD [facility] Service CONSULTATION NOTE FOR SURGICAL ATTENDING, DR. ERNESTINE TIDWELL Consult Requested By Admitting service Reason for Consult Abnormal CT scan Primary Care Physician No Primary Care Physician History of Present Illness Patient had laparoscopic appendectomy about 2-3 months ago. He is back at work doing a lot of heavy lifting and straining and when he had some generalized abdominal discomfort that he was thought to be related to his increasing activities. His seemed to localize a little bit in the right lower quadrant and he came to the emergency room where CT was done showing a fluid collection in the right lower quadrant Patient denies any nausea or vomiting fevers or chills bowel movement normal appetite Review of Systems ROS Limitations: Clinical Condition Constitutional: DENIES: Diaphoretic episodes, Fatigue, Fever, Weight gain, Weight loss, Chills, Dizziness, Change in appetite, Night Sweats Endocrine: DENIES: Heat/cold intolerance, Polydipsia, Polyuria, Polyphagia Cardiovascular: DENIES: Chest pain, Palpitations, Syncope, Dyspnea on Exertion , PND, Lower Extremity Edema, Orthopnea, Claudication Gastrointestinal: COMPLAINS OF: Abdominal pain, DENIES: Black stools, Bloody stools, Constipation, Diarrhea, Nausea, Vomiting, Difficulty Swallowing, Anorexia Past Family Social History Past Surgical History Laparoscopic appendectomy Allergies: Coded Allergies: No Known Allergies (Unverified , 06/03/17) Active Ordered Medications Current Medications Medications (Trade) Dose Ordered Sig/Keith Route Start Time Stop Time Status Last Admin (NS Flush) 2 ml UNSCH PRN IV FLUSH 08/27/17 12:45 Sodium Chloride 1,000 ml @ 100 mls/hr Q10H IV 08/27/17 18:50 08/28/17 06:30 (NS Flush) 2 ml UNSCH PRN IV FLUSH 08/27/17 19:00 (NS Flush) 2 ml BID IV FLUSH 08/27/17 21:00 (Tylenol) 650 mg Q4H PRN PO 08/27/17 19:00 (Zofran Inj) 4 mg Q6H PRN IVP 08/27/17 19:00 (Compazine Supp) 25 mg Q12H PRN RECTAL 08/27/17 19:00 (Restoril) 15 mg HS PRN PO 08/27/17 19:00 (Tylenol) 650 mg Q6H PRN PO 08/27/17 19:00 (Percocet 5-325 Mg) 1 tab Q6H PRN PO 08/27/17 19:00 (Percocet 10-325 Mg) 1 tab Q6H PRN PO 08/27/17 19:00 (Morphine Inj) 2 mg Q3H PRN IV PUSH 08/27/17 19:00 (Morphine Inj) 4 mg Q3H PRN IV PUSH 08/27/17 19:00 (Narcan Inj) 0.4 mg UNSCH PRN IV PUSH 08/27/17 19:00 (Mari-Colace) 1 tab BID PO 08/27/17 21:00 (Milk Of Magnesia Liq) 30 ml Q12H PRN PO 08/27/17 19:00 (Senokot) 17.2 mg Q12H PRN PO 08/27/17 19:00 (Dulcolax Supp) 10 mg DAILY PRN RECTAL 08/27/17 19:00 (Lactulose Liq) 30 ml DAILY PRN PO 08/27/17 19:00 Piperacillin Sod/ Tazobactam Sod 50 ml @ 100 mls/hr Q6H IV 08/28/17 00:00 08/28/17 11:17 (Habitrol 14 Mg Patch.24 Hr) 1 patch DAILY T-DERMAL 08/29/17 09:00 Miscellaneous Information 1 HS T-DERMAL 08/28/17 21:00 Physical Exam Vital Signs Vital Signs Date Time Temp Pulse Resp B/P (MAP) Pulse Ox O2 Delivery O2 Flow Rate FiO2 08/28/17 11:30 98.2 46 18 124/69 (87) 99 08/28/17 07:38 97.5 53 18 126/66 (86) 98 08/28/17 03:20 98.0 66 17 131/77 (95) 96 08/27/17 23:27 98.3 58 17 137/68 (91) 97 08/27/17 20:13 99.7 56 16 139/80 (99) 97 08/27/17 19:33 21 08/27/17 17:45 52 18 138/67 (90) 97 Physical Exam Vital signs as documented in the ER record.. Head exam was generally normal. Neurologically, the patient was awake, alert, and oriented to person, place and time. There were no obvious focal neurologic abnormalities. Neck was supple and without jugular venous distension, . Examination of the chest was unremarkable. There were no bony deformities, no asymmetry, or other abnormalities. Cardiac regular rate Lungs were clear to auscultation and percussion, and with normal diaphragmatic excursion. No wheezes or rales were noted. Abdominal exam revealed normal bowel sounds. The abdomen was soft, non-tender, and without masses, organomegaly, or appreciable enlargement of the abdominal aorta. Mild soreness in the right lower quadrant healed laparoscopic scars Examination of the extremities . There was no cyanosis, clubbing or edema. Examination of the skin revealed no evidence of significant rashes, suspicious appearing nevi or other concerning lesions. Laboratory Laboratory Tests Test 08/27/17 15:05 08/28/17 04:59 Urine Color YELLOW Urine Turbidity CLEAR Urine pH 7.0 Urine Specific [place] 1.009 Urine Protein NEG Urine Glucose (UA) NEG Urine Ketones 10 Urine Occult Blood NEG Urine Nitrite NEG Urine Bilirubin NEG Urine Urobilinogen 2.0 Urine Leukocyte Esterase NEG Urine WBC 1 Urine Mucus FEW Microscopic Urinalysis Comment CULT NOT INDICATED White Blood Count 9.3 Red Blood Count 4.51 Hemoglobin 14.1 Hematocrit 40.7 Mean Corpuscular Volume 90.3 Mean Corpuscular Hemoglobin 31.3 Mean Corpuscular Hemoglobin Concent 34.7 Red Cell Distribution Width 14.4 Platelet Count 220 Mean Platelet Volume 8.4 Neutrophils (%) (Auto) 69.9 Lymphocytes (%) (Auto) 14.6 Monocytes (%) (Auto) 13.4 Eosinophils (%) (Auto) 1.7 Basophils (%) (Auto) 0.4 Neutrophils # (Auto) 6.5 Lymphocytes # (Auto) 1.4 Monocytes # (Auto) 1.3 Eosinophils # (Auto) 0.2 Basophils # (Auto) 0.0 CBC Comment DIFF FINAL Differential Comment Prothrombin Time 11.1 Prothromb Time International Ratio 1.1 Blood Urea Nitrogen 12 Creatinine 0.89 Random Glucose 82 Total Protein 7.0 Albumin 3.4 Calcium Level 8.5 Alkaline Phosphatase 80 Aspartate Amino Transf (AST/SGOT) 13 Alanine Aminotransferase (ALT/SGPT) 18 Total Bilirubin 1.6 Sodium Level 140 Potassium Level 3.8 Chloride Level 105 Carbon Dioxide Level 26.2 Anion Gap 9 Estimat Glomerular Filtration Rate 108 Result Diagram: 08/28/17 0459 08/28/17 0459 Imaging Last Impressions Abdomen/Pelvis CT 08/27/17 1240 Signed Impressions: Service Date/Time: Sunday, August 27, 2017 16:38 - CONCLUSION: 1. Tiny area of loculated fluid in the right lower quadrant at the appendectomy site, possibly small seroma or small abscess. Also seen nonloculated fluid and free fluid in the right lower quadrant. No free air or bowel obstruction. Ernestine Galvan MD Assessment and Plan Problem List: (1) Seroma of digestive system after digestive system procedure ICD Codes: K91.872 - Postprocedural seroma of a digestive system organ or structure following a digestive system procedure; K65.1 - Peritoneal abscess Status: Acute (2) Intra-abdominal abscess post-procedure ICD Codes: T81.4XXA - Infection following a procedure, initial encounter; K65.1 - Peritoneal abscess Status: Acute Assessment and Plan 21-year-old gentleman who about 3 months ago had an appendectomy He has increased his activities and had some nausea, discomfort. CT scan showed some fluid down the right lower quadrant some question as if it was an abscess. Or fluid collection. It was too small to aspirate He subsequently been on antibiotics for 24 hours his white count is can come down his pain is slightly better he would like to go home Okay to discharge home with antibiotics that have written. Follow-up with Dr. Abdi in the near future for reevaluation. Attending Statement NOTE FOR SURGICAL ATTENDING, DR. ERNESTINE TIDWELL I attest that I had a [id number] encounter with the patient on the same day, and personally performed and documented my assessment and findings in the medical record. The following services were provided during this hospital visit: Chart data review, vital sign assessments/reviewing monitor data Review of consultations notes if present. Medication orders/review and/or management Ordering and/or reviewing lab tests Ordering and/or interpreting/reviewing x-rays and/or diagnostic studies Care of the patient and discussion of the patient with the care team Documentation time To help prompt me to consider important information that might be impacting today's encounter and assessment, information from prior notes written by myself or my colleagues may have been "brought forward/copy and pasted" into today's note. Problem Qualifiers (1) Intra-abdominal abscess post-procedure: Qualified Codes: T81.4XXA - Infection following a procedure, initial encounter ; K65.1 - Peritoneal abscess Ernestine Tidwell MD Aug 28, 2017 14:16
--- NOTE | 2017-08-28 14:55 | HHI.DS ---
Discharge Summary Admission Date Aug 27, 2017 at 17:50 Discharge Date: Aug 28, 2017 Admitting Diagnosis Abdominal Seroma S/P abdominal surgery (1) Seroma of digestive system after digestive system procedure ICD Code: K91.872 - Postprocedural seroma of a digestive system organ or structure following a digestive system procedure; K65.1 - Peritoneal abscess Diagnosis: Principal Status: Acute (2) Intra-abdominal abscess post-procedure ICD Code: T81.4XXA - Infection following a procedure, initial encounter; K65.1 - Peritoneal abscess Diagnosis: Principal Status: Acute Procedures None Brief History - From Admission 21-year-old male with a past medical history significant for laparoscopic appendectomy for acute appendicitis on 06/06/17 presents to the emergency department with a 3 day history of generalized abdominal pain. The patient endorses intermittent accompanying nausea. Denies emesis. Subjective fever/ chills. The patient reports his abdominal pain has progressed over the past 3 days to the point where he felt he needed to come to the emergency department for further evaluation. He is most tender in the right lower quadrant. CT of the abdomen/pelvis shows a tiny area of loculated fluid in the right lower quadrant at the appendectomy site with loculated fluid in the right lower quadrant. Afebrile with stable vital signs. Mild leukocytosis of 11.2. CBC/BMP: 08/28/17 0459 08/28/17 0459 Significant Findings Laboratory Tests Test 08/27/17 13:00 08/27/17 15:05 08/28/17 04:59 White Blood Count 11.2 TH/MM3 (4.0-11.0) Neutrophils (%) (Auto) 80.2 % (16.0-70.0) Lymphocytes (%) (Auto) 8.8 % (9.0-44.0) Monocytes (%) (Auto) 10.3 % (0.0-8.0) 13.4 % (0.0-8.0) Neutrophils # (Auto) 9.0 TH/MM3 (1.8-7.7) Monocytes # (Auto) 1.2 TH/MM3 (0-0.9) 1.3 TH/MM3 (0-0.9) Aspartate Amino Transf (AST/SGOT) 12 U/L (15-37) 13 U/L (15-37) Total Bilirubin 1.6 MG/DL (0.2-1.0) 1.6 MG/DL (0.2-1.0) Lipase 65 U/L (73-393) Urine Ketones 10 mg/dL (NEG) Urine Mucus FEW /lpf (OCC) Hospital Course Mr. Eli is a 21 year old male. He came in the hospital secondary to abdominal pain. He has a recent history of appendectomy secondary to appendicitis. Imaging showed seroma versus abscess. White blood cell count was present at time of admit. This most likely represents seroma but antibiotics have been started as a precaution. He's been cleared by surgery with discharge to home on Levaquin as a recommendation. Medically today he is stable for discharge to home. Pt Condition on Discharge: Stable Discharge Disposition: Discharge Home Discharge Time: <= 30 minutes Discharge Instructions DIET: Follow Instructions for: As Tolerated, No Restrictions Activities you can perform: Regular-No Restrictions Follow up Referrals: Surgical - 2-3 Days with Yash Abdi MD New Medications: Levofloxacin (Levofloxacin) 500 Mg Tablet 500 MG PO DAILY for Infection, #7 TAB 0 Refills Chris Hoyos MD Aug 28, 2017 14:55
[2017-08-28 15:10] VITALS: BP 137/81; PULSE 57; RESP 18; TEMP 97.9; O2SAT 99
[2017-08-28] MEDS ORDERED: REMOVE OLD PATCH T-DERMAL SCH (21:00)
[2017-08-29] MEDS ORDERED: NICOTINE 14 MG/24 HR PATCH T-DERMAL SCH (09:00)
== END 2017-08-28 15:35 | disposition home or self-care (01) ==
LOC: NEPD 12:13 → NEDA 17:50 → NEPHCDU 20:09
PROVIDERS: ADMIT Hospitalist; ATTEND Hospitalist
DX: K91.872 Postprocedural seroma of a digestive system organ or structure following a digestive system procedure (principal); K65.1 Peritoneal abscess; R10.31 Right lower quadrant pain; K44.9 Diaphragmatic hernia without obstruction or gangrene; F17.200 Nicotine dependence, unspecified, uncomplicated
CPT/HCPCS: 74177; 80053; 81001; 83690; 85025; 85610; 85730; 96361; 96365; 96366; 96375; 99285; G0378; J2270; J2405; J2543; J7030; Q9963; Q9967